=== PATIENT | female | born 2000 | race Caucasian/White ===

== ENCOUNTER 2021-09-05 18:26 | Emergency (ER) | payer OTHER ==
[~2021-09-05] VITALS: Ht 157.5 cm; Wt 49.9 kg
--- NOTE | 2021-09-05 18:49 | NUR ---
Pt. in ambulatory got situated in bed. AAOx4. vitals: HR of 129-130, saturation of 97% on RA. sbp of 139/94. Left arm abrassion. [employer] at bedside.
--- NOTE | 2021-09-05 19:10 | NUR ---
PT AMBULATED TO ER C/O MOYA A/O X3, PT STATES SHE HAS CHRONIC MOYA BUT BECAME WORSE OVER THE LAST COUPLE DAYS SHE STATE "IT'S AFFECTING MY COGNITIVE". DENIES ANY CP/PRESSURE. NO N/V/D. DENIES ANY GI/ DISTRESS. CLEAR SPEECH, COMPLETE SENTENCES.
--- NOTE | 2021-09-05 19:20 | NUR ---
DR. SAENZ AT BEDSIDE, MSE IN PROGRESS.
[2021-09-05] MEDS ORDERED: KETOROLAC TROMETHAMINE 30 MG INJ IVP ONE (19:30)
[2021-09-05] MEDS ORDERED: diphenhydrAMINE 50 MG/1 ML VIAL IV ONE (19:30)
[2021-09-05] MEDS ORDERED: IV NORMAL SALINE 1000 ML BAG IV ONE (19:30)
[2021-09-05] MEDS ORDERED: METOCLOPRAMIDE HCL 10 MG/2 ML VIAL IV ONE (19:30)
[2021-09-05] MEDS ORDERED: diphenhydrAMINE 50 MG/1 ML VIAL ONE (19:35)
[2021-09-05] MEDS ORDERED: KETOROLAC TROMETHAMINE 30 MG INJ ONE (19:35)
[2021-09-05] MEDS ORDERED: METOCLOPRAMIDE HCL 10 MG/2 ML VIAL ONE (19:35)
--- NOTE | 2021-09-05 19:48 | NUR ---
PT TAKEN DOWN FOR CT.
[2021-09-05 19:55] LABS: HEMATOCRIT 38.2 % (31.2-41.9); MEAN CORPUSCULAR HEMOGLOBIN 30.6 uug (24.7-32.8); MEAN CORPUSCULAR VOLUME 90.1 fL (75.5-95.3); PLATELET COUNT (AUTO) 235 K/uL (179-408)
--- NOTE | 2021-09-05 19:59 | NUR ---
PT RETURNED FROM CT, STABLE CONDITION.
[2021-09-05 20:08] LABS: CREATININE 0.7 mg/dL (0.6-1.3); POTASSIUM 3.8 mmol/L (3.5-5.1)
--- NOTE | 2021-09-05 20:27 | NUR ---
PT AMBULATED TO RESTROOM, STEADY GAIT.
[2021-09-05 20:40] LABS: *URINE HCG, QUAL NEGATIVE (NEGATIVE)
[2021-09-05] MEDS ORDERED: CYANOCOBALAMIN 1000 MCG/ML VIAL IM ONE (21:00)
[2021-09-05] MEDS ORDERED: CYANOCOBALAMIN 1000 MCG/ML VIAL ONE (21:06)
[2021-09-05] MEDS ORDERED: DIPH25CA83 PO (21:15)
[2021-09-05] MEDS ORDERED: METO-295 PO (21:15)
[2021-09-05] MEDS ORDERED: NAPR-1164 PO (21:15)
[2021-09-05 21:31] VITALS: BP 112/76
--- NOTE | 2021-09-05 21:31 | NUR ---
Patient discharged to home in stable condition. Written and verbal after care instructions given. Patient verbalizes understanding of instructions. Stressed follow up or return to ER for worsening s/s. Steady gait. Picked up by friend. Denies any pain/discomfort upon discharge.
== END 2021-09-05 21:32 | disposition home or self-care (01) ==
LOC: ER 18:34
DX: G43.909 Migraine, unspecified, not intractable, without status migrainosus (principal); Z87.820 Personal history of traumatic brain injury
CPT/HCPCS: 36415; 70450; 80048; 82607; 84703; 85025; 96361; 96372; 96374; 96375; 99284; J1200; J1885; J2765; J3420; A4663; J7030

== ENCOUNTER 2022-12-28 18:16 | Emergency (ER) | payer OTHER ==
[~2022-12-28] VITALS: Ht 157.5 cm; Wt 51.3 kg
[~2022-12-28 18:16] MED LIST: DIPH25CA83 PO; METO-295 PO; NAPR-1164 PO
[2022-12-28] MEDS ORDERED: ACETAMINOPHEN 325 MG TABLET PO ONE (21:45)
[2022-12-28] MEDS ORDERED: METOCLOPRAMIDE HCL 10 MG TABLET PO ONE (21:45)
--- NOTE | 2022-12-28 21:47 | NUR ---
Patient ambulated to room #5, seen by ER provider, informed of plan of care at this time, no s/s of any distress noted at this time, will continue to monitor.
[2022-12-28] MEDS ORDERED: METOCLOPRAMIDE HCL 10 MG TABLET ONE (21:52)
[2022-12-28] MEDS ORDERED: KETOROLAC TROMETHAMINE 30 MG INJ ONE (21:52)
[2022-12-28] MEDS ORDERED: KETOROLAC TROMETHAMINE 30 MG INJ IM ONE (22:00)
[2022-12-28 22:15] LABS: HEMATOCRIT 41.1 % (31.2-41.9); MEAN CORPUSCULAR HEMOGLOBIN 30.4 uug (24.7-32.8); MEAN CORPUSCULAR VOLUME 92.7 fL (75.5-95.3); PLATELET COUNT (AUTO) 271 K/uL (179-408)
[2022-12-28 22:28] LABS: BILIRUBIN,TOTAL 1.7 mg/dL (0.2-1.0); CREATININE 0.6 mg/dL (0.6-1.3); POTASSIUM 3.8 mmol/L (3.5-5.1); TOTAL PROTEIN, SERUM 8.1 g/dL (6.4-8.2)
--- NOTE | 2022-12-28 22:38 | NUR ---
Urine cup provided, specimen will be sent to lab.
[2022-12-28 22:50] LABS: *URINE HCG, QUAL NEG (NEGATIVE)
[2022-12-28] MEDS ORDERED: NAPR-1009 PO (23:09)
[2022-12-28 23:40] VITALS: BP 126/68; O2SAT 99
--- NOTE | 2022-12-28 23:40 | NUR ---
ACI GIVEN REMAINS STABLE FOR DISCHARGE HOME.
== END 2022-12-28 23:41 | disposition home or self-care (01) ==
LOC: ER 18:36
DX: R51.9 Headache, unspecified (principal); Z79.899 Other long term (current) drug therapy
CPT/HCPCS: 99283; 80053; 84703; 85025; 36415; 96372; J1885; A4663; J8597